=== PATIENT | female | born 1950 | race Caucasian/White ===

== ENCOUNTER 2019-04-23 21:57 | Observation (INO) ==
[2019-04-23] MEDS ORDERED: ASPIRIN PO ONE (22:01)
[2019-04-23] MEDS ORDERED: NITROGLYCERIN TOP ONE (22:14)
--- NOTE | 2019-04-23 22:14 | PROVIDER DOCUMENTATION ---
HPI-Chest Pain - General Chief Complaint: Chest Pain Stated Complaint: CHEST PAIN Time Seen by Provider: 04/23/19 22:07 Source: patient Allergies/Adverse Reactions: Patient Allergies Allergy/AdvReac Type Severity Reaction Status Date / Time No Known Allergies Allergy Verified 04/23/19 22:03 Home Medications: Home Medication List Medication Instructions Recorded Confirmed Last Taken Type Pramipexole [Mirapex] 0.5 mg PO BID 01/07/12 04/24/19 04/23/19 17:00 History Apixaban [Eliquis] 5 mg PO BID 12/22/14 04/24/19 04/23/19 09:00 History Losartan/Hydrochlorothiazide 1 each PO DAILY 12/22/14 04/24/19 04/23/19 09:00 History [Losartan-Hctz 100-12.5 mg Tab] Amiodarone [Cordarone] 200 mg PO DAILY 03/11/15 04/24/19 04/23/19 09:00 History Hydrocodone/APAP 7.5 mg/325 mg 1 ea PO Q6H PRN PRN #12 tab 04/25/18 04/24/19 04/23/19 09:00 Rx [[place]-7.5] - History of Present Illness-CP Nature of Presenting Problem: 68 YOF WITH PMH OF AFIB AND HTN PRESENTS WITH SQUEEZING CP AND LEFT NECK PAIN THAT BEGAN 30 MIN FORGE HEATER, ASSOCIATED WITH PALPITATIONS AND FEELING SOB. DENIES N/V/D, SWEATING, COUGH, FEVER, CHILLS. Location: reports: substernal Chest Pain Radiation: reports: neck Quality of Pain: reports: tightness Severity in ED: moderate Onset/Duration: 1/2 hour ago Timing: still present Context/Activities at Onset: reports: none Modifying Factors: improves with: nothing Associated Symptoms: reports: denies symptoms Nitro Today/Relief: no nitro taken today Aspirin Treatment Today: 325 mg x 1, provided by ED Prior Chest Pain/Cardiac Workup: reports: cardiac cath (2014), echocardiography (2014) Similar Symptoms Previously?: Yes Recently Seen Here or By Another Healthcare Provider: No Review of Systems - Adult - REVIEW OF SYSTEMS - ADULT Constitutional: reports: no symptoms reported. denies: see HPI, chills, fever, fatique, night sweats, weight gain, weight loss, other Eyes: reports: no symptoms reported. denies: see HPI, discharge, dry eyes, decreased vision, blurred vision, double vision, eye pain, redness, other Ears, Nose, Mouth & Throat: reports: no symptoms reported. denies: see HPI, ear discharge, ear pain, hearing loss, tinnitus, epistaxis, sinus problem, nose eliana n, loose teeth, mouth/dental pain, mouth swelling, hoarseness, throat pain, throat swelling, other Cardiovascular: reports: chest pain, palpitations. denies: no symptoms reported, see HPI, edema, heart murmur, irregular heart rate, orthopnea, poor c irculation, PND, syncope, other Respiratory: reports: shortness of breath. denies: no symptoms reported, see HPI, chronic cough, cough, dyspnea on exertion, excessive sputum production, hemoptysis, pleurisy, wheezing, other Gastrointestinal: reports: no symptoms reported. denies: see HPI, abdominal pain, hematemesis, constipation, diarrhea, difficulty swallowing, frequent heartburn, nausea, poor appetite, rectal bleeding, vomiting, other Genitourinary: reports: no symptoms reported. denies: see HPI, dysuria, discharge, frequency, flank pain, frequent UTI's, hematuria, hesitency, incontinence, urinary retention, urgency, other Musculoskeletal: reports: no symptoms reported. denies: see HPI, bone pain, back pain, frequent leg cramps, joint pain, joint swelling, muscle aches, muscle weakness, neck pain, other Integumentary: reports: no symptoms reported. denies: see HPI, hives, hair loss, itching, mole changes, nail changes, rash, skin sores/ulcer, skin thick ening, other Neurological: reports: no symptoms reported. denies: see HPI, ataxia, dizziness/vertigo, headache/migraines, loss of balance, numbness, paresthesia, seizure, slurred speech, syncope, tremors, other Psychiatric: reports: no symptoms reported. denies: see HPI, anxiety, anti- depressant use, alcohol/drug dependence, depression, emotional problems, insomnia, panic attacks, suicidal thoughts, other Endocrine: reports: no symptoms reported. denies: see HPI, change in skin pigment, excessive sweating, goiter, cold intolerance, heat intolerance, increased hunger, increased thirst, polyuria, other Hematologic/Lymphatic: reports: no symptoms reported. denies: see HPI, blood clots, easy bruising, low blood count, lymphedema, prolonged bleeding, swollen lymph nodes, transfusions, other Allergic/Immunologic: reports: no symptoms reported. denies: see HPI, allergic reactions, allergic rhinitis, asthma, eczema, food allergy, frequent infections, hay fever, hives, positive PPD, urticaria, other Past History - Adult - PAST MEDICAL HISTORY-ADULT Review of Records: reports: Nursing Assessment Review, Social history reviewed & non-contributory. Major Childhood Illnesses: reports: history unknown Cardiovascular: reports: A-Fib, HTN, hyperlipidemia Respiratory: reports: COPD, cancer (lung cancer) Gastrointestinal: reports: denies history Obstetrical/Gynecological: reports: denies history Genitourinary: reports: denies history Musculoskeletal: reports: denies history Neurological: reports: denies history Endocrine/Immune: reports: denies history Other Conditions: reports: denies history - PRIOR SURGERIES/PROCEDURES Surgical/Procedure History: reports: BTL, back/neck (back x2), other (partial left lung removal) - IMMUNIZATION STATUS Childhood Immunizations: UTD, See Nurse Assessment Flu Vaccine: See Nurse Assessment - FAMILY HISTORY Family History: reviewed, not pertinent Physical Exam-General - PHYSICAL EXAM-ADULT Initial Vital Signs Reviewed: Yes - CONSTITUTIONAL General Appearance: alert, no apparent distress - EYES Eyes: PERRL/EOMI, pink conjunctivae - HEAD, EARS, NOSE, MOUTH & THROAT HENMT: normocephalic/atraumatic, moist mucous membranes, normal ENT inspection - NECK Neck: non-tender, full range of motion, supple - RESPIRATORY Respiratory: chest non-tender, lungs clear, normal breath sounds, no pleuratic chest pain, no respiratory distress, no accessory muscle use - CARDIOVASCULAR Cardiovascular: normal peripheral pulses, no edema, no gallop, no JVD, no murmur , irregularly irregular - GASTROINTESTINAL (ABDOMEN) Abdominal Exam: normal bowel sounds, non tender, soft - LYMPHATIC Lymphatic: no adenopathy - MUSCULOSKELETAL Back Exam: normal inspection, no CVA tenderness, no vertebral tenderness Extremity: normal range of motion, non-tender, normal gait Peripheral Pulses: radial (R): 2+, radial (L): 2+ - SKIN Integumentary: normal color, normal turgor, warm/dry - NEUROLOGIC Neurologic: grossly normal - PSYCHIATRIC Psych/Mental Status: normal mood/affect, oriented x 3 - HEART Score HEART Score: History: Moderately Suspicious HEART Score: ECG: Non-Specific Repolarization Disturbance/LBBB/PM HEART Score: Age: > or = 65 Years HEART Score: Risk Factors for Atherosclerotic Disease: 1 or 2 Risk Factors HEART Score: Troponin: < or = Normal Limit Total HEART Score:: 5 Progress - PLAN OF CARE/RESULTS Progress/Plan/Lab Results: Laboratory Results - last 24 hr 04/23/19 04/23/19 04/23/19 22:16 22:16 22:16 WBC RBC Hgb Hct MCV MCH MCHC RDW Std Deviation Plt Count MPV Immature Gran % (Auto) Neut % (Auto) Lymph % (Auto) Mckenzie % (Auto) Eos % (Auto) Baso % (Auto) Immature Gran # (Auto) Neut # (Auto) Lymph # (Auto) Mckenzie # (Auto) Eos # (Auto) Baso # (Auto) PT 13.9 INR 1.02 PTT (Actin FS) 30.5 Sodium Potassium Chloride Carbon Dioxide Anion Gap BUN Creatinine Estimated GFR/1.73 m2 BUN/Creatinine Ratio Glucose Calculated Osmolality Calcium Total Bilirubin AST ALT Alkaline Phosphatase Creatine Kinase 112 Troponin T < 0.010 [id number]-Eribwuqvqdj Pept Total Protein Albumin Globulin Albumin/Globulin Ratio 04/23/19 04/23/19 04/23/19 22:16 22:16 22:16 WBC 8.99 RBC 4.80 Hgb 12.0 Hct 37.7 MCV 78.5 L MCH 25.0 L MCHC 31.8 L RDW Std Deviation 15.4 H Plt Count 329 MPV 9.1 Immature Gran % (Auto) 0.4 Neut % (Auto) 60.5 Lymph % (Auto) 27.5 Mckenzie % (Auto) 11.2 H Eos % (Auto) 0.2 Baso % (Auto) 0.2 Immature Gran # (Auto) 0.04 Neut # (Auto) 5.43 Lymph # (Auto) 2.47 Mckenzie # (Auto) 1.01 H Eos # (Auto) 0.02 Baso # (Auto) 0.02 PT INR PTT (Actin FS) Sodium 137 Potassium 3.3 L Chloride 99 Carbon Dioxide 25 Anion Gap 13 BUN 17 Creatinine 0.8 Estimated GFR/1.73 m2 > 60 BUN/Creatinine Ratio 21 Glucose 116 H Calculated Osmolality 276 Calcium 9.4 Total Bilirubin 0.30 AST 17 ALT 17 Alkaline Phosphatase 139 H Creatine Kinase Troponin T Hil-[id number]-Jmgwbmptxhj Pept 1114 H Total Protein 7.0 Albumin 4.6 Globulin 2.0 Albumin/Globulin Ratio 2.0 04/24/19 00:03 WBC RBC Hgb Hct MCV MCH MCHC RDW Std Deviation Plt Count MPV Immature Gran % (Auto) Neut % (Auto) Lymph % (Auto) Mckenzie % (Auto) Eos % (Auto) Baso % (Auto) Immature Gran # (Auto) Neut # (Auto) Lymph # (Auto) Mckenzie # (Auto) Eos # (Auto) Baso # (Auto) PT INR PTT (Actin FS) Sodium Potassium Chloride Carbon Dioxide Anion Gap BUN Creatinine Estimated GFR/1.73 m2 BUN/Creatinine Ratio Glucose Calculated Osmolality Calcium Total Bilirubin AST ALT Alkaline Phosphatase Creatine Kinase Troponin T < 0.010 Yhf-M-Kxuotorgadp Pept Total Protein Albumin Globulin Albumin/Globulin Ratio Orders Category Date Time Status Admit - [facility] Routine AdmDCTranf 04/24/19 01:11 Active Activity - Bed Rest with BRP ORDERED Care 04/24/19 01:11 Active Saline Loc DIRECTED Care 04/24/19 01:11 Active Saline Loc NOW Care 04/23/19 22:01 Completed Vital Signs Order ROUTINE Care 04/24/19 01:11 Active Heart Healthy Diet Diet 04/24/19 01:12 Completed NPO Diet 04/24/19 01:48 Completed CHEST-2 VIEWS [RAD] Stat Exams 04/23/19 22:01 Completed BNP [PRO B-NATRIURETIC PEPTIDE] Stat Lab 04/23/19 22:16 Completed CBC WITH ELECTRONIC DIFF [HEME] Stat Lab 04/23/19 22:16 Completed CK PROFILE [SP CHEM] Stat Lab 04/23/19 22:16 Completed COMPREHENSIVE METABOLIC PANEL [CHEM] Stat Lab 04/23/19 22:16 Completed PROTIME WITH INR [COAG] Stat Lab 04/23/19 22:16 Completed PTT [COAG] Stat Lab 04/23/19 22:16 Completed TROPONIN T Q4HR Lab 04/25/19 05:00 Ordered TROPONIN T Q4HR Lab 04/25/19 09:00 Ordered TROPONIN T Q4HR Lab 04/25/19 13:00 Ordered TROPONIN T Stat Lab 04/23/19 22:16 Completed TROPONIN T Stat Lab 04/24/19 00:03 Completed Aspirin Med 04/23/19 22:01 Discontinued 325 mg PO NOW ONE Aspirin Med 04/24/19 09:00 Active 81 mg PO DAILY Morphine Med 04/24/19 01:11 Active 2 mg IV Q2H PRN PRN Morphine Med 04/23/19 23:21 Discontinued 4 mg IV NOW ONE Nitroglycerin Med 04/23/19 22:14 Discontinued 0.5 inch TOP NOW ONE Ondansetron [Zofran] Med 04/23/19 23:22 Discontinued 4 mg IV NOW ONE Ondansetron [Zofran] Med 04/24/19 01:11 Active 4 mg IV Q4H PRN PRN Oxygen Device Stat Oth 04/23/19 23:42 Active EKG [EKG] Stat Ther 04/23/19 22:01 Draft EKG [EKG] Stat Ther 04/23/19 23:22 Draft EKG, Stress Test [EKG] Stat Ther 04/24/19 01:48 Ordered Echo Spec/Color Doppler Routine Ther 04/24/19 01:48 Ordered Transfer/Admit Order [TRANSFER] Routine Transfer 04/24/19 01:12 Completed Result Diagrams: 04/23/19 22:16 04/24/19 07:05 - REASSESSMENT Reassessment #1 Time Reassessed: 23:20 (CP UNRELIEVED) Status: unchanged Reassessment Comment: DR LOPEZ RECOMMENDS GIVING MORPHINE AND ZOFRAN AT THIS TIME Reassessment #2 Time Reassessed: 23:53 (CP RESOLVED WITH MORPHINE ) Status: improving Reassessment #3 Time Reassessed: 00:39 (NO CP, NAD, OK WITH PLAN TO ADMIT) Status: unchanged - EKG 1 Time of EKG reading by physician:: 22:11 EKG Read and Signed by:: Maynor Lopez EKG Interpretation (*Must complete 3 of following elements*): Abnormal Rate: 77 Rhythm: A-FIB [place]: normal QRS: normal MO Interval: normal ST Wave: non-specific ST changes Prior EKG Comparison: no prior EKG - XRAY 1 XRAY Study: Chest Impression: Normal (NO PNA OR PNUEMOTHORAX) - CONSULTS/PCP/HOSPITALIST Notification #1 *Consult/PCP/Hospitalist*: DR MCGEE Time Discussed: 00:39 Consult Disposition: Admit Departure - Departure Date of Disposition Decision: 04/24/19 Time of Disposition Decision: 00:38 DIAGNOSIS: Chest pain, Atrial fibrillation Disposition: ADMITTED INPATIENT 09 Certified Medical Emergency: Emergent Condition: Stable - Critical Care Note This patient required my direct & personal management of CC.: No Attestation - Physician/ TIBURCIO Attestation Patient care was provided by Advanced Practice Provider:: Yes Advanced Practice Provider:: Jeanette Contreras Advanced Practice Provider documentation review:: The Mid-level provider documentation, treatment plan and medical decision making was reviewed by the physician who agrees with all treatment and medical decision making by the MLP. The physician spent face to face time with patient:: No Advanced Practice Provider documentation review:: Supervising physician onsite and consulted in the evaluation and care of this patient. The physician did not have a face to face encounter with the patient.
[2019-04-23 22:30] LABS: BASO# 0.02 X1000 (0.0-0.2); BASO% 0.2 % (0.0-0.8); EOS# 0.02 X1000 (0.0-0.7); EOS% 0.2 % (0.0-10.0); HEMATOCRIT 37.7 % (37.0-47.0); IMM GRAN# 0.04 X1000 (0.0-0.04); IMM GRAN% 0.4 % (0.0-0.5); LYMPH# 2.47 X1000 (1.2-3.4); LYMPH% 27.5 % (20.5-51.1); MCHC 31.8 g/dL (33-37); MCV 78.5 FL (81-99); MONO# 1.01 X1000 (0.11-0.59); MONO% 11.2 % (1.7-9.3); MPV 9.1 FL (7.4-10.4); NEUT# 5.43 X1000 (1.4-6.5); NEUT% 60.5 % (42.2-75.2); PLT 329 X1000 (130-400); RDW 15.4 % (11.5-14.5); WBC 8.99 X1000 (4.8-10.8)
[2019-04-23 22:57] LABS: INR 1.02; PROTIME 13.9 Seconds (11.0-16.0)
[2019-04-23 22:58] LABS: PTT 30.5 Seconds (22.3-41.8)
[2019-04-23 23:14] LABS: AGAP 13; ALBUMIN 4.6 g/dL (3.5-5.0); ALKALINE PHOSPHATASE 139 U/L (32-104); BUN 17 mg/dL (8-22); CALCIUM 9.4 mg/dL (8.8-10.2); CHLORIDE 99 mmol/L (98-107); COSMO 276; CREATININE 0.8 mg/dL (0.5-0.9); ESTIMATED GFR > 60; GLUCOSE 116 mg/dL (70-104); GOT 17 U/L (10-30); GPT 17 U/L (10-36); POTASSIUM 3.3 mmol/L (3.5-5.1); SODIUM 137 mmol/L (136-145); TCO2 25 mmol/L (25-35)
[2019-04-23] MEDS ORDERED: MORPHINE IV ONE (23:21)
[2019-04-23] MEDS ORDERED: ZOFRAN IV ONE (23:22)
--- NOTE | 2019-04-23 23:29 | EKG Report ---
Test Performed on : 04/23/2019 10:10:53 PM Test Reason : CP Blood Pressure : / mmHG Vent. Rate : 077 BPM Atrial Rate : 375 BPM P-R Int : 000 ms QRS Dur : 086 ms QT Int : 378 ms P-R-T Axes : 000 -19 -31 degrees QTc Int : 427 ms Atrial fibrillation. Possible Anterior infarct (cited on or before 15-MAY-2017) Abnormal ECG When compared with ECG of 20-JUL-2017 12:54, Atrial fibrillation. has replaced Junctional rhythm. Nonspecific T wave abnormality, improved in Anterolateral leads QT has shortened Confirmed by Clarissa OCONNELL, Vivek ([id number]), television news video editor Julia Malik ([id number]) on 05/31/2019 12:38:01 PM
--- NOTE | 2019-04-23 23:30 | EKG Report ---
Test Performed on : 04/23/2019 11:29:38 PM Test Reason : REPEAT Blood Pressure : / mmHG Vent. Rate : 075 BPM Atrial Rate : 159 BPM P-R Int : 000 ms QRS Dur : 086 ms QT Int : 428 ms P-R-T Axes : 000 -12 -24 degrees QTc Int : 477 ms Atrial fibrillation. Cannot rule out Anterior infarct (cited on or before 15-MAY-2017) Abnormal ECG When compared with ECG of 23-APR-2019 22:10, (Unconfirmed) Questionable change in initial forces of Anterior leads QT has lengthened Confirmed by Vivek Romo MD ([id number]), tape editor Julia Malik ([id number]) on 05/31/2019 12:38:02 PM
[2019-04-24] MEDS ORDERED: MORPHINE IV PRN (01:11)
[2019-04-24] MEDS ORDERED: ZOFRAN IV PRN (01:11)
[2019-04-24] MEDS ORDERED: KLOR-CON PO ONE (06:36)
--- NOTE | 2019-04-24 07:49 | Diag Imaging Result Doc PS360 ---
CHEST-2 VIEWS - 04/23/2019 INDICATION: CP COMPARISON: 05/14/2018 FINDINGS: Stable left hemidiaphragm elevation. The lungs are clear. Heart size is normal. No pneumothorax or pleural effusion. IMPRESSION: Negative exam. Electronically signed by Newton Best 04/24/2019 7:47 AM
[2019-04-24 07:51] LABS: AGAP 10; ALBUMIN 3.9 g/dL (3.5-5.0); ALKALINE PHOSPHATASE 120 U/L (32-104); BUN 14 mg/dL (8-22); CALCIUM 8.6 mg/dL (8.8-10.2); CHLORIDE 103 mmol/L (98-107); COSMO 280; CREATININE 0.9 mg/dL (0.5-0.9); ESTIMATED GFR > 60; GLUCOSE 101 mg/dL (70-104); GOT 14 U/L (10-30); GPT 14 U/L (10-36); MAGNESIUM 1.9 mg/dL (1.5-2.7); POTASSIUM 3.6 mmol/L (3.5-5.1); SODIUM 140 mmol/L (136-145); TCO2 27 mmol/L (25-35)
[2019-04-24 08:26] LABS: URINE SOURCE CLEAN CATCH
[2019-04-24] MEDS ORDERED: NORCO-7.5 PO PRN (08:26)
[2019-04-24 08:27] LABS: UR EPITHELIAL CELLS <10 /HPF (<10); URINE BACTERIA NEGATIVE /HPF; URINE RBC <10 /HPF (<10); URINE WBC <10 /HPF (<10)
[2019-04-24 08:28] LABS: BILIRUBIN URINE NEGATIVE (NEGATIVE); BLOOD URINE NEGATIVE (NEGATIVE); COLOR YELLOW; GLUCOSE URINE NEGATIVE (NEGATIVE); KETONE URINE NEGATIVE (NEGATIVE); LEUKOCYTES URINE NEGATIVE (NEGATIVE); NITRITE URINE NEGATIVE (NEGATIVE); PROTEIN URINE NEGATIVE (NEGATIVE); SP GRAVITY URINE 1.019; TURBIDITY URINE CLEAR (CLEAR); UROBILINOGEN URINE NORMAL (NORMAL)
[2019-04-24] MEDS ORDERED: COZAAR PO SCH (09:00)
[2019-04-24] MEDS ORDERED: ELIQUIS PO SCH (09:00)
[2019-04-24] MEDS ORDERED: ASPIRIN PO SCH (09:00)
[2019-04-24] MEDS ORDERED: CORDARONE PO SCH (09:00)
[2019-04-24] MEDS ORDERED: MIRAPEX PO SCH (09:00)
[2019-04-24] MEDS ORDERED: HYDROCHLOROTHIAZIDE PO SCH (09:00)
[2019-04-24 11:02] VITALS: BP 100/50
--- NOTE | 2019-04-24 18:40 | HISTORY AND PHYSICAL ---
ADDENDUM: The patient was seen and examined by myself. Full note dictated and discussed with nurse practitioner. Patient presented to the hospital with chest pain and rapid heart rate. She has a known history of congestive heart failure as well as previous history of lung cancer status post partial lobectomy. We will admit to the hospital, rule out AL. If her symptoms continue, she may require further inpatient testing. cc: Jed Reyes MD
--- NOTE | 2019-04-24 18:50 | DISCHARGE SUMMARY ---
ADMISSION DATE: 04/23/2019 DISCHARGE DATE: 04/24/2019 DISCHARGE DIAGNOSES: 1. Chest pain resolved as her heart rate improved. 2. Chronic atrial fibrillation with RVR currently rate controlled. 3. Hypertension . 4. Known lung cancer. 5. COPD. CONSULTATIONS: None. PROCEDURES: None. BRIEF HOSPITAL COURSE: The patient is a 68-year-old female who presented to the hospital, treated in the usual fashion. Thankfully she ruled out for an AL. On discharge, all of her symptoms have resolved. She is feeling better and is asking to go home. She was able to ambulate. cc: Jed Reyes MD
--- NOTE | 2019-05-01 13:01 | HISTORY AND PHYSICAL ---
CHIEF COMPLAINT: Chest pain. HISTORY OF PRESENT ILLNESS: Patient is a 68-year-old female with a history of atrial fibrillation, presented to the hospital with wheezing, chest pain, left-sided neck pain began approximately 30 minutes prior to coming to the emergency room, noted she was having palpitations, feeling short of breath. ALLERGIES: No known drug allergies. MEDICATIONS: Mirapex 0.5 b.i.d., Eliquis 5 b.i.d., losartan 100/25, Cordarone 200 and [place] p.r.n. PAST MEDICAL HISTORY: Significant for atrial fibrillation, hypertension, hyperlipidemia, COPD. Has a history of lung cancer. She has had a BTL, back surgery x2, partial left lung removal secondary to cancer. FAMILY HISTORY: Noncontributory. REVIEW OF SYSTEMS: Patient notes her pain is actually a little bit better now coming to the ER. Denies any radiation of said pain. Denies any shortness of breath. Denies fevers, chills, cough, congestion. Denies any other upper respiratory type symptoms. Denies dysuria, frequency, urgency, hesitancy, polyuria or polydipsia. SOCIAL HISTORY: Patient lives at home. Does not smoke or drink. PHYSICAL EXAMINATION: VITAL SIGNS: Reviewed. She is awake, alert. She is in no current respiratory distress. HEENT: Normocephalic. NECK: Supple. CARDIOVASCULAR: Regular rate. CHEST: Clear. ABDOMEN: Soft. EXTREMITIES: Moves all extremities. NEUROLOGIC: No focal changes. SKIN: Warm dry, no rashes. ASSESSMENT: 1. Chest pain. 2. Atrial fibrillation. 3. Hypertension. 4. Chronic restless leg. 5. Others. PLAN: We wanted to continue patient in the hospital, rule out OR and will follow. cc: Jed Reyes MD
== END 2019-04-24 13:36 | disposition home or self-care (01) ==
LOC: P.ED 21:57 → INTOOBSV 23:59 → P.MEDSURG 04-24 01:44
PROVIDERS: ATTEND Family Medicine